=== PATIENT | male | born 1950 | race Caucasian/White ===

== ENCOUNTER 2017-01-09 11:46 | Day surgery (SDC) | payer OTHER ==
[~2017-01-09] VITALS: Ht 167.6 cm; Wt 81.6 kg
[~2017-01-09 11:46] MED LIST: ASPIR-LOW81 MG PO; Aspirin PO; EFFEXOR75 MG PO; Fish Oil PO; KEFLEX500 MG PO; LO-DOSE ASPIRIN81 M1 PO; LOVAZA1 GM PO; NEXIUM40 MG PO; OXYCODONE-ACET1 EACH PO; PAROXETINE HCL40 MG PO; PAXIL10 MG PO; SIMVASTATIN40 MG PO; THERAGRAN1 TABLET PO; TRILIPIX135 MG PO; ZOCOR40 MG PO; Zocor PO
[2017-01-09 12:22] VITALS: BP 166/79
[2017-01-09 13:23] LABS: ALKALINE PHOSPHATASE 73 IU/L (3-129); SERUM ETHYL ALCOHOL < 10 mg/dL; TOTAL BILIRUBIN 0.5 MG/DL (0.0-1.0)
[2017-01-09 16:30] VITALS: BP 138/84
[2017-01-09 16:50] VITALS: BP 140/80
== END 2017-01-09 17:00 | disposition home or self-care (01) ==
LOC: SDC 11:46
PROVIDERS: Orthopaedic Surgery Hand Surgery
PROC: 0RRW0JZ Replacement of Right Finger Phalangeal Joint with Synthetic Substitute, Open Approach (ICD-10-PCS; principal; 2017-01-09)
DX: M19.041 Primary osteoarthritis, right hand (principal); M79.641 Pain in right hand; I44.1 Atrioventricular block, second degree; K21.9 Gastro-esophageal reflux disease without esophagitis; Z79.82 Long term (current) use of aspirin; Z87.891 Personal history of nicotine dependence
CPT/HCPCS: 73140; 76000; 80076; C1776; G0480; J0690; J3010; S0020